=== PATIENT | male | born 1995 | race Caucasian/White ===

== ENCOUNTER 2020-09-16 00:52 | Emergency (ER) | payer BC, OTHER ==
[~2020-09-16] VITALS: Ht 170.2 cm; Wt 74.8 kg
[2020-09-16 01:23] VITALS: BP 127/79
[2020-09-16] MEDS ORDERED: ONDANSETRON HCL/PF 4 MG/2 ML VIAL ONE (01:40)
--- NOTE | 2020-09-16 01:53 | NUR ---
PATIENT CAME TO THE ER C/O VOMITING. PATIENT STATES THAT HE HAD CHUGGED 3 SHOTS OF VODKA AND HAD A MARIJUANA EDIBLE. PATIENT IS AAOX4. AMBULATORY. NO SOB. BREATHING EVENLY AND UNLABORED ON ROOM AIR.
--- NOTE | 2020-09-16 01:54 | NUR ---
PATIENT IS CALLING A TAXI TO TAKE HIM TO A HOTEL.
--- NOTE | 2020-09-16 01:54 | NUR ---
PATIENT IS VOMITING. MD NOTIFIED. PATIENT REFUSED ZOFRAN.
--- NOTE | 2020-09-16 01:54 | NUR ---
Patient discharged to home in stable condition. Written and verbal after care instructions given. Patient verbalizes understanding of instruction.
[2020-09-16] MEDS ORDERED: ONDANSETRON HCL/PF 4 MG/2 ML VIAL IM ONE (02:00)
== END 2020-09-16 02:02 | disposition home or self-care (01) ==
LOC: ER 00:55
DX: Z00.8 Encounter for other general examination (principal); R11.2 Nausea with vomiting, unspecified
CPT/HCPCS: J2405